=== PATIENT | female | born 1945 | race Caucasian/White ===

== ENCOUNTER 2017-04-19 11:32 | Emergency (ER) | payer BC, MEDICARE ==
[~2017-04-19] VITALS: Ht 152.4 cm; Wt 70.0 kg
[~2017-04-19 11:32] MED LIST: PROAIR RES108 MCG/AC; SINGULAIR PO; SYMBICORT 80-4.5MCG
[2017-04-19 12:38] LABS: INFLUENZA A NONE DETECTED (NONE DETECT); INFLUENZA B NONE DETECTED (NONE DETECT)
[2017-04-19] MEDS ORDERED: ZPAK PO (12:40)
[2017-04-19 12:43] VITALS: BP 123/59
== END 2017-04-19 13:00 | disposition home or self-care (01) | DRG 153 ==
LOC: ED 11:32
PROVIDERS: Family Medicine
DX: J06.9 Acute upper respiratory infection, unspecified (principal); J45.909 Unspecified asthma, uncomplicated; K21.9 Gastro-esophageal reflux disease without esophagitis

== ENCOUNTER 2017-04-21 15:11 | Emergency (ER) | payer BC, MEDICARE ==
[~2017-04-21] VITALS: Ht 152.4 cm; Wt 71.8 kg
[~2017-04-21 15:11] MED LIST changes: +ZPAK PO
[2017-04-21] MEDS ORDERED: CARAFATE1 GM PO (15:20)
[2017-04-21] MEDS ORDERED: ROBITUSSIN AC10 ML PO (15:20)
[2017-04-21] MEDS ORDERED: SINGULAIR10 MG PO (15:21)
[2017-04-21] MEDS ORDERED: PROAIR HFA IN (15:21)
[2017-04-21] MEDS ORDERED: ZOFRAN ODT4 MG PO (15:42)
[2017-04-21 16:41] VITALS: BP 116/50
== END 2017-04-21 16:40 | disposition home or self-care (01) | DRG 866 ==
LOC: ED 15:11
DX: B34.9 Viral infection, unspecified (principal); R50.9 Fever, unspecified; M79.1 Myalgia; R05 Cough; R11.2 Nausea with vomiting, unspecified

== ENCOUNTER 2017-04-28 09:15 | Emergency (ER) | payer BC, MEDICARE ==
[~2017-04-28] VITALS: Ht 152.4 cm; Wt 70.0 kg
[~2017-04-28 09:15] MED LIST changes: +CARAFATE1 GM PO; +PROAIR HFA IN; +ROBITUSSIN AC10 ML PO; +SINGULAIR10 MG PO; +ZOFRAN ODT4 MG PO
[2017-04-28] MEDS ORDERED: SYMBICORT 80-4.5MCG PO (09:21)
[2017-04-28] MEDS ORDERED: TYLENOL # 31 TA1 PO (09:41)
[2017-04-28] MEDS ORDERED: PREDNISONE50 MG PO (09:41)
[2017-04-28] MEDS ORDERED: ZOFRAN ODT4 MG PO (09:41)
[2017-04-28 09:59] VITALS: BP 130/70
== END 2017-04-28 10:13 | disposition home or self-care (01) | DRG 203 ==
LOC: ED 09:15
DX: J45.909 Unspecified asthma, uncomplicated (principal); R73.03 Prediabetes

== ENCOUNTER 2018-11-11 10:11 | Emergency (ER) | payer BC, MEDICARE ==
[~2018-11-11] VITALS: Ht 152.4 cm; Wt 72.0 kg
[~2018-11-11 10:11] MED LIST changes: +PREDNISONE50 MG PO; +SYMBICORT 80-4.5MCG PO; +TYLENOL # 31 TA1 PO
[2018-11-11] MEDS ORDERED: FAMOTIDINE20 M1 PO (10:38)
[2018-11-11] MEDS ORDERED: [UNRECOGNIZED DRUG - REMARK] PO (10:38)
[2018-11-11] MEDS ORDERED: CYCLOBENZAPR5 MG PO (10:39)
[2018-11-11] MEDS ORDERED: VALACYCLOVIR HCL1 GM PO (10:41)
[2018-11-11 10:53] LABS: HEMATOCRIT 41.5 % (37.0-47.0); HEMOGLOBIN 13.9 g/dl (12.0-16.0); IMMATURE GRANULOCYTES 0.7 % (0.0-5.0); MEAN CELL VOLUME 87.6 fL CALC (80.0-100.0); MEAN CORPUSCULAR HGB 29.3 pG CALC (26.0-32.0); MEAN CORPUSCULAR HGB CONC 33.5 g/L CALC (32.0-36.0); NEUT# 3.12 thou/uL (2.00-7.15); RED BLOOD COUNT 4.74 mill/uL (4.20-5.60); RED CELL DISTRI WIDTH 13.5 % (11.5-15.5)
[2018-11-11 10:53] LABS: URINE BILIRUBIN - DIPSTICK NEGATIVE (NEGATIVE); URINE BLOOD DIPSTICK NEGATIVE (NEGATIVE); URINE COLOR YELLOW; URINE GLUCOSE - DIPSTICK NEGATIVE (NEGATIVE); URINE KETONE NEGATIVE (NEGATIVE); URINE LEUK ESTERASE NEGATIVE (NEGATIVE); URINE NITRITE - DIPSTICK NEGATIVE (Negative); URINE PROTEIN - DIPSTICK NEGATIVE (NEG-TRACE); URINE SPECIFIC GRAVITY >=1.030; URINE UROBILINOGEN - DIPSTICK 0.2 E.U./dL (0.2)
[2018-11-11 11:12] LABS: ALBUMIN 4.5 g/dL (3.2-5.0); ALKALINE PHOSPHATASE 73 u/l (38-126); ANION GAP 15 (6-22 (CALC)); BILIRUBIN, TOTAL 1.1 mg/dL (0.0-1.4); BUN 17 mg/dL (8-23); BUN/CREATININE RATIO 23 (12-20 (CALC)); CARBON DIOXIDE 25 mmol/l (22-30); CHLORIDE 106 mmol/l (95-108); CREATININE 0.7 mg/dL (0.5-1.0); GFR > 60 ML/MIN (>=60 (CALC)); GFR FOR AFR.AMER. > 60 ML/MIN (>=60 (CALC)); POTASSIUM 4.7 mmol/l (3.5-5.1); SGOT/AST 16 u/l (9-36); SODIUM 141 mmol/l (137-146); TOTAL PROTEIN 7.3 g/dL (6.3-8.2)
[2018-11-11 11:24] LABS: MYOGLOBIN 21 ng/mL (0 - 62)
[2018-11-11 11:52] VITALS: BP 145/67
== END 2018-11-11 11:51 | disposition home or self-care (01) | DRG 948 ==
LOC: ED 10:11
PROVIDERS: Emergency Medicine
DX: R53.1 Weakness (principal); J44.9 Chronic obstructive pulmonary disease, unspecified; R73.03 Prediabetes